=== PATIENT | female | born 1940 | race Caucasian/White ===

== ENCOUNTER 2017-08-18 10:30 | Outpatient (CLI) ==
--- NOTE | 2017-08-18 11:37 | DEXA ---
EXAM: DEXA scan. HISTORY: Post menopausal. COMPARISON: 07/12/2015. TECHNIQUE: [employer] [id number]. DEXA scan lumbar spine performed. Quality of the study is good. BMD is 1.014 grams per square centi meter. T-score -1.4. Z-score 0.0. DEXA scan hips performed. Quality of the study is good. BMD 0.74 grams per square centimeter. T-sco re -1.8. Z-score -0.3. IMPRESSION: According to the World Health Organization classification, lumbar spine and hip bone mineral density demonstrates osteopenia, with increased fracture risk. Ten-year major osteoporotic fracture risk is 22.5%. Ten-year hip fracture risk is 6.4%. Since the prior study, there has been no statistically s ignificant change in bone mineral density.
== END 2017-08-18 10:31 | disposition home or self-care (01) ==
LOC: RAD 10:30
PROVIDERS: ATTEND Internal Medicine
DX: Z13.820 Encounter for screening for osteoporosis (principal); M85.89 Other specified disorders of bone density and structure, multiple sites

== ENCOUNTER 2017-10-12 13:13 | Outpatient (CLI) ==
--- NOTE | 2017-10-12 14:12 | US ---
EXAM: Carotid ultrasound HISTORY: Dizziness COMPARISON: 07/12/2015 TECHNIQUE: Carotid ultrasound was performed using cui scale, color, and Doppler imaging was perform ed. FINDINGS: Right carotid: There is mild atherosclerosis without significant visualized area of atherosclerotic narrowing. Peak systolic velocity measurement in the right internal carotid artery is 0.8 meters per second. End-diastolic velocity measurement in the right internal carotid artery is 0.2 meters per s econd. Right internal to common carotid artery peak systolic velocity ratio is 0.5. Flow in the rig ht vertebral artery is antegrade. Left carotid: There is mild atherosclerosis without significant visualized area of atherosclerotic n arrowing. Peak systolic velocity measurement in the left internal carotid artery is 0.5 meters per s econd. End-diastolic velocity measurement in the left internal carotid artery is 0.2 meters per seco nd. Left internal to common carotid artery peak systolic velocity ratio measures 0.8. Flow in the l eft vertebral artery is antegrade. IMPRESSION: 1. Right internal carotid: No hemodynamically significant stenosis. 2. Left internal carotid: No hemodynamically significant stenosis.
--- NOTE | 2017-10-12 14:25 | US ---
EXAM: Ultrasound thyroid. HISTORY: Thyromegaly. COMPARISON: 07/12/2015. TECHNIQUE: Sue-scale and color Doppler images. FINDINGS: The right lobe of the thyroid measures 1.5 x 0.7 x 0.7 cm. There is heterogeneous echogenicity withou t discrete nodule. The thyroid isthmus measures 0.3 cm. The left lobe of the thyroid measures 1.5 x 0.6 x 0.8 cm. There is heterogeneous echogenicity withou t discrete nodule. Since the prior study, there has been no significant interval change. IMPRESSION: Small heterogeneous thyroid gland.
== END 2017-10-12 13:14 | disposition home or self-care (01) ==
LOC: RAD 13:13
PROVIDERS: ATTEND Internal Medicine
DX: R42 Dizziness and giddiness (principal); E07.9 Disorder of thyroid, unspecified

== ENCOUNTER 2019-03-09 15:46 | Outpatient (CLI) | END 2019-03-09 15:47 | disposition home or self-care (01) | LOC: LAB 15:46 | PROVIDERS: ATTEND Internal Medicine | DX: R10.9 Unspecified abdominal pain (principal) | CPT/HCPCS: 36415; 80053; 82150; 82565; 83690; 85025 ==

== ENCOUNTER 2019-03-10 12:59 | Outpatient (CLI) ==
--- NOTE | 2019-03-10 14:52 | CT ---
EXAM: CT of the abdomen pelvis with and without contrast History: Lower abdominal pain. Comparison: None available. Technique: Multiplanar CT images through the abdomen pelvis were obtained with and without the admin istration of IV contrast. Findings: Lung bases are clear. No acute osseous abnormalities. Moderate to severe degenerative di sc disease at L2-L3. Large hiatal hernia. No renal stones. Cholelithiasis or gallbladder sludge. Mild left hydronephrosis versus small left renal parapelvic cy sts. No enhancing renal cortical masses. Calcified granulomas within the spleen. No liver lesions. The liver is probably fatty. Adrenal glands are unremarkable. Pancreas is within normal limits. Tiny fat containing umbilical hernia. No bowel obstruction. The appendix is normal. No bladder wal l thickening. No perirectal inflammation. Small uterus. Prominent pelvic vessels and dilated bilat eral ovarian veins. No pathologically enlarged lymph nodes. No free air and no ascites. No abdomin al aortic aneurysm. 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 The splenic vein is not well seen. Colonic diverticulosis Impression: 1. Mild left hydronephrosis versus small parapelvic cysts. 2. Cholelithiasis and/or gallbladder sludge. 3. Large hiatal hernia. 4. Colonic diverticulosis. 5. Pelvic congestion syndrome. 6. 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 7. Probable fatty liver. 8. Other findings as detailed above.
== END 2019-03-10 13:00 | disposition home or self-care (01) ==
LOC: RAD 12:59
PROVIDERS: ATTEND Internal Medicine
DX: R10.9 Unspecified abdominal pain (principal)